=== PATIENT | female | born 1945 | race African-American/Black ===

== ENCOUNTER → 2016-12-12 | Day surgery (SDC) | payer MEDICARE ==
[~2016-12-12] MED LIST: OLME1TAB29 PO
== END | disposition home or self-care (01) ==
LOC: RAD 07:40
PROVIDERS: ATTEND Surgery
DX: T81.4XXA Infection following a procedure, initial encounter (principal); L02.91 Cutaneous abscess, unspecified; Y83.9 Surgical procedure, unspecified as the cause of abnormal reaction of the patient, or of later complication, without mention of misadventure at the time of the procedure; Y92.89 Other specified places as the place of occurrence of the external cause; Z98.890 Other specified postprocedural states
CPT/HCPCS: 74176